=== PATIENT | female | born 1960 | race Hispanic/Latino ===

== ENCOUNTER → 2018-03-10 | Outpatient (CLI) | payer OTHER | LOC: RAD 08:51 | PROVIDERS: ATTEND Internal Medicine Hematology & Oncology | DX: C50.911 Malignant neoplasm of unspecified site of right female breast (principal); Z17.0 Estrogen receptor positive status [ER+] | CPT/HCPCS: 93306 ==

== ENCOUNTER 2021-09-23 12:35 | Emergency (ER) | payer OTHER ==
[~2021-09-23] VITALS: Ht 160 cm; Wt 95.7 kg
[2021-09-23] MEDS ORDERED: IBUPROFEN 400 MG TAB PO ONE (13:00)
[2021-09-23] MEDS ORDERED: IBUPROFEN 600 MG TAB ONE (13:11)
[2021-09-23] MEDS ORDERED: IBUPROFEN600 MG PO (13:55)
== END 2021-09-23 13:46 | disposition home or self-care (01) ==
LOC: FSED 12:42
DX: S20.212A Contusion of left front wall of thorax, initial encounter (principal); M25.552 Pain in left hip; W01.0XXA Fall on same level from slipping, tripping and stumbling without subsequent striking against object, initial encounter; Y93.K1 Activity, walking an animal; Y92.89 Other specified places as the place of occurrence of the external cause; I10 Essential (primary) hypertension; Z85.89 Personal history of malignant neoplasm of other organs and systems
CPT/HCPCS: 71101; 99283